=== PATIENT | female | born 1995 | race Hispanic/Latino ===

== ENCOUNTER 2016-08-15 23:46 | Emergency (ER) | payer OTHER ==
[~2016-08-15] VITALS: Ht 154.9 cm; Wt 87.3 kg
[~2016-08-15 23:46] MED LIST: PNV1TABL9 PO
[2016-08-15 23:52] VITALS: BP 120/81; PULSE 74; O2SAT 100
[2016-08-16 02:10] VITALS: BP 107/69; PULSE 67; RESP 12; O2SAT 94
[2016-08-16 02:12] VITALS: BP 108/64; PULSE 67; RESP 14; O2SAT 99
== END 2016-08-16 00:40 | disposition home or self-care (01) ==
LOC: SED 23:46
DX: O62.0 Primary inadequate contractions (principal); Z3A.40 40 weeks gestation of pregnancy

== ENCOUNTER 2017-03-20 20:49 | Emergency (ER) | payer OTHER ==
[~2017-03-20] VITALS: Ht 154.9 cm; Wt 77.3 kg
[2017-03-20 20:51] VITALS: BP 110/76; PULSE 71; RESP 16; O2SAT 100
--- NOTE | 2017-03-20 21:14 | ED.REPORT ---
HPI-Headache Date of Service Mar 20, 2017 ED Provider: Thony Ho MD The pt is a 21 y/o female with a hx of migraines who presents to the ED complaining of worsening "8/10" frontal and occipital headache, onset a few hours ago. She is unable to tolerate light and sound. The pt was told by Dr. Soolrio that her migraines are stress induced. She reports significant stress recently. Associated sx include photophobia, myalgia, nausea, and 4 episodes of vomiting. The pt took an ibuprofen today which did not provide any relief. She denies fever and trauma to the head. The pt has not experienced a headache this severe and has not taken any medication in the last two years. The pt has a 7 month old baby. She is not . Nursing Notes Stated Complaint: BAD HEADACHE,BODY ACHES Chief Complaint: Headache Nursing Notes Reviewed: Yes Allergies: Coded Allergies: Penicillins (Verified Allergy, Intermediate, Hives, 03/20/17) Scheduled Pnv Cmb#21/Iron/Folic Acid ( Complete Caplet) 1 Each Tablet 1 EACH PO DAILY General Time Seen by MD: 21:09 Chief Complaint Headache Hx Obtained From: Patient Arrived By: Walk-in Sudden in Onset?: Yes Onset Occurred: 1 - 4 hours ago Symptom Duration: Since onset Location: : Frontal bilateral: Occipital bilateral Quality: Painful Radiation: : Does not radiate Severity: Current: Pain level 8 out of 10 Severity: Maximum: Severe Recent Healthcare: No recent doctor visit Past Medical History Past Medical History Notes: She was seen in ED 01/04/2015 for KEBEDE and amnesia - MRI brain and workup negative Past Medical History gastritis endometriosis discovered during laparoscopic appendectomy chlamydia GERD Conflicting reports of gallbladder disease - pt reported on prior visit 12/26/2014 that she had abnormal gallbladder U/S. Pt had normal RUQ U/S and normal HIDA scan here at [facility] in late Jul/early Aug 2014 migraines Past Surgical History Laporoscopy for endometriosis 03/28 Reports: Appendectomy, Cholecystectomy Family History NC (Father) Cancer (Mother) Reports: Gallbladder disease Smoking History Never Smoker Social History Alcohol Use: Denies alcohol use Drug Use: Denies drug use Other Social History: Frequent ED visitor Occupation Works at a early [employer] Ambulatory Status Independent Review of Systems Denies: head trauma Constitutional: Denies: Fever Eyes: Reports: Photophobia GI: Reports: Nausea, Vomiting Musculoskeletal: Reports: Myalgia Neurologic: Reports: Headache Complete sys rev & neg: except as marked. Physical Exam Initial Vital Signs Vital Signs (First) Date Time Temp Pulse Resp B/P Pulse Ox O2 Delivery O2 Flow Rate FiO2 03/20/17 20:51 36.8 71 16 110/76 100 Room Air Initial VS: Reviewed, Vital signs normal Respiratory: Breath sounds normal, Clear to auscultation, No respiratory distress Cardiovascular: Regular rate & rhythm, Heart sounds normal, Intact distal pulses Abdomen / GI: Soft, Non-tender, No guarding, No rebound, No distention Extremities: Vascular intact, Neuro intact, No swelling, No tenderness Skin: Warm, Dry, No cyanosis General/Constitutional: Awake, Alert, No acute distress, Well appearing, Cooperative The pt is smiling and laughing. She is in no significant distress. Head / Eyes: Atraumatic, Normocephalic, PERRL Neck: Atraumatic, Supple, Full range of motion Neurologic: Oriented X3, Speech NL, No motor deficits, No sensory deficits Re-Eval/Medical Decision Med Decision/Clinical Course 21-year-old female with a typical migraine headache for her. There are no bothersome features in her history or on her physical examination. She had good relief with IV hydration, Toradol, and ondansetron. She will be discharged home to follow up with her primary doctor. Re-Evaluation/Progress : Time of Eval: 23:01 Re-Evaluation/Progress Note: Rechecked pt. Discussed diagnosis and plan to discharge. Pt understands and agrees with the plan. F/U instruction and RTER warning given. All questions addressed. Counseled Regarding: Diagnosis, Need for follow-up, When/why to return to ED Discharge & Departure Impression: Primary Impression: Headache Headache type: unspecified Headache chronicity pattern: acute headache Intractability: not intractable Qualified Code: R51 - Headache Disposition: Home Discharge Condition All VS Reviewed: Yes Condition: Stable Patient Instructions: Migraine Headache (ED) Additional Instructions: You received IV fluids, IV ketorolac (Toradol), and IV ondansetron (Zofran). Home to sleep. Oral ketorolac is no more effective than ibuprofen and has more side effects an ibuprofen, so I do not recommend it. Talk to your regular doctor about getting a prescription for migraine preventative medications. Referrals: JULIA GREENE (PCP) Scribe Attestation Portions of this note were transcribed by Fiordaliza Ponce. I,, personally performed the history,physical exam and medical decision-making;I reviewed and confirmed the accuracy of the information in the transcribed note. Signed by Anny Haro. 03/20/17 copies to: JULIA GREENE Howard L MD Mar 20, 2017 21:14 Fiordaliza Ponce Mar 20, 2017 21:27
[2017-03-20] MEDS ORDERED: 0.9% Sodium Chloride 1,000 ML IV ONE (21:24)
[2017-03-20] MEDS ORDERED: Ondansetron 2 mg/mL 2 mL Inj IVPUSH ONE (21:25)
[2017-03-20] MEDS ORDERED: Ketorolac 15 mg/mL Inj IVPUSH ONE (21:25)
[2017-03-20 23:47] VITALS: BP 118/74; PULSE 78; RESP 14; O2SAT 98
== END 2017-03-20 23:41 | disposition home or self-care (01) ==
LOC: SED 20:49
DX: R51 Headache (principal); F43.9 Reaction to severe stress, unspecified; H53.149 Visual discomfort, unspecified; M79.1 Myalgia; R11.2 Nausea with vomiting, unspecified; K21.9 Gastro-esophageal reflux disease without esophagitis; Z88.0 Allergy status to penicillin
CPT/HCPCS: 96361; 96374; 96375; 99284; J1885; J2405; J7030